=== PATIENT | female | born 2000 | race Caucasian/White ===

== ENCOUNTER 2023-07-30 06:15 | Day surgery (SDC) | payer OTHER ==
[~2023-07-30] VITALS: Ht 160 cm; Wt 69.3 kg
[~2023-07-30 06:15] MED LIST: MIRT-84 PO
[2023-07-30 06:45] LABS: HEMATOCRIT 40.6 % (36.0-47.0); HEMOGLOBIN 14.6 g/dl (12.0-15.5)
[2023-07-30 07:08] LABS: HCG, SERUM QUALITATIVE NEGATIVE (NEGATIVE)
[2023-07-30] MEDS: METHYLENE BLUE 0.5% (5MG/ML) 10 ML AMP (PROVAYBLUE) As Ordered ONE (07:08)
[2023-07-30] MEDS ORDERED: ONDANSETRON 4MG 2ML VIAL As Ordered ONE (07:10)
[2023-07-30] MEDS ORDERED: fentaNYL 100 MCG/2 ML INJECTION As Ordered ONE (07:10)
[2023-07-30] MEDS ORDERED: propofoL 200 MG/20 ML VIAL As Ordered ONE (07:10)
[2023-07-30] MEDS ORDERED: METOCLOPRAMIDE INJ 10MG/2ML VIAL As Ordered ONE (07:10)
[2023-07-30] MEDS ORDERED: ROCURONIUM BROMIDE 50MG/5ML VIAL As Ordered ONE (07:10)
[2023-07-30] MEDS ORDERED: MIDAZOLAM INJ 2MG/2ML VIAL As Ordered ONE (07:10)
[2023-07-30] MEDS ORDERED: LIDOCAINE 2% INJ 100 MG/5 ML SYRINGE As Ordered ONE (07:11)
[2023-07-30] MEDS: LR 1,000 ML IV SCH (07:16)
[2023-07-30] MEDS: DOXYCYCLINE HYCLATE 100MG TABLET PO ONE (07:17)
[2023-07-30] MEDS ORDERED: ACETAMINOPHEN 1000MG 100ML IV BAG As Ordered ONE (07:51)
[2023-07-30] MEDS ORDERED: KETOROLAC 60MG 2ML VIAL As Ordered ONE (08:18)
[2023-07-30] MEDS: LIDOCAINE 1% SDV 30ML VIAL As Ordered ONE (08:18)
[2023-07-30] MEDS ORDERED: SUGAMMADEX SODIUM 500 MG/5 ML VIAL (BRIDION) As Ordered ONE (08:18)
[2023-07-30] MEDS: SILVER NITRATE APPLICATOR (1 = QTY 10) As Ordered ONE (08:28)
[2023-07-30] MEDS ORDERED: fentaNYL 100 MCG/2 ML INJECTION IV PRN (08:30)
[2023-07-30] MEDS ORDERED: LR 1,000 ML IV SCH (08:30)
[2023-07-30] MEDS: HYDROMORPHONE HCL 0.5 MG/ 0.5 ML SYRINGE IV PRN ×2 (08:53→09:58)
[2023-07-30] MEDS: oxyCODONE 5MG TAB PO PRN ×2 (09:23→10:47)
[2023-07-30] MEDS: ONDANSETRON 4MG 2ML VIAL IV PRN (09:23)
[2023-07-30] MEDS: PROMETHAZINE 25MG/ML 1ML VIAL IV ONE (11:42)
[2023-07-30 13:13] VITALS: BP 126/73; TEMP 98; O2SAT 98
== END 2023-07-30 13:19 | disposition home or self-care (01) ==
LOC: M SDC 06:15
PROVIDERS: ATTEND Obstetrics & Gynecology
DX: N85.8 Other specified noninflammatory disorders of uterus (principal); R10.2 Pelvic and perineal pain; N93.9 Abnormal uterine and vaginal bleeding, unspecified; N94.10 Unspecified dyspareunia; Z87.42 Personal history of other diseases of the female genital tract; Z91.048 Other nonmedicinal substance allergy status; Z91.040 Latex allergy status; Z88.5 Allergy status to narcotic agent; Z79.899 Other long term (current) drug therapy
CPT/HCPCS: 36415; 58350; 58558; 84703; 85014; 85018; 88305; J0131; J0665; J1100; J1170; J1885; J2250; J2405; J2550; J2765; J3010; Q9968

== ENCOUNTER → 2024-09-23 | Outpatient (CLI) | payer OTHER | LOC: M RAD 08:56 | DX: M26.629 Arthralgia of temporomandibular joint, unspecified side (principal); M26.633 Articular disc disorder of bilateral temporomandibular joint ==

== ENCOUNTER 2024-12-28 14:03 | Emergency (ER) | payer OTHER ==
[~2024-12-28] VITALS: Ht 160 cm; Wt 59.4 kg
[2024-12-28 20:27] LABS: BASO # 0.1 10^3/uL (0.0-0.2); BASO % 0.6 % (0.0-1.0); EOS # 0.3 10^3/uL (0.0-0.5); EOS % 3.2 % (0.0-3.0); LYMPH # 2.9 10^3/uL (1.5-5.0); LYMPH % 37.5 % (24.0-44.0); MONO # 0.5 10^3/uL (0.0-0.8); MONO % 6.0 % (2.0-8.0); NEUTROPHILS # 4.1 10^3/uL (1.5-8.5); NEUTROPHILS % 52.6 % (36.0-66.0); PLATELET COUNT, AUTOMATED 290 10^3/uL (150-450)
[2024-12-28] MEDS ORDERED: FLUO-365 PO (20:42)
[2024-12-28] MEDS: ONDANSETRON 4MG 2ML VIAL IV ONE (20:46)
[2024-12-28] MEDS: KETOROLAC 30 MG/ML 1 ML VIAL IV ONE (20:46)
[2024-12-28 20:52] LABS: ALT/SGPT 12 U/L (7.0-40); AST/SGOT 17 U/L (<34); CALCIUM LEVEL 9.5 MG/DL (8.5-10.1); CARBON DIOXIDE LEVEL 26 MMOL/L (20-31); CHLORIDE LEVEL 105 MMOL/L (98-107); CREATININE FOR GFR 0.75 MG/DL (0.55-1.30); GLOMERULAR FILTRATION RATE > 90.0 (>60); HCG, SERUM QUALITATIVE NEGATIVE (NEGATIVE); POTASSIUM SERUM 4.2 MMOL/L (3.5-5.1); SODIUM LEVEL 142 MMOL/L (136-145)
[2024-12-28] MEDS ORDERED: ISOVUE-370 76% 100 ML VIAL As Ordered ONE (21:01)
[2024-12-28] MEDS ORDERED: META0.52 PO (21:58)
[2024-12-28] MEDS ORDERED: MIRA3350 PO (21:58)
[2024-12-28] MEDS: MAGNESIUM CITRATE 300 ML BTL PO ONE (22:23)
[2024-12-28 22:52] VITALS: BP 122/77; TEMP 97; O2SAT 99
== END 2024-12-28 22:55 | disposition home or self-care (01) ==
LOC: M ED 14:03
DX: K59.00 Constipation, unspecified (principal); Z88.8 Allergy status to other drugs, medicaments and biological substances; Z91.040 Latex allergy status; Z79.899 Other long term (current) drug therapy
CPT/HCPCS: 74177; 80048; 80076; 83690; 84703; 85025; 96374; 99284; J1885; J2405; Q9967